=== PATIENT | male | born 2000 | race African-American/Black ===

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

== ENCOUNTER 2021-03-23 16:32 | Emergency (ER) | payer MEDICAID ==
[2021-03-23] MEDS ORDERED: Ibuprofen 200 MG TAB ONE (18:12)
== END 2021-03-23 18:17 | disposition home or self-care (01) ==
LOC: ERS 16:32
DX: M25.512 Pain in left shoulder (principal); F17.210 Nicotine dependence, cigarettes, uncomplicated

== ENCOUNTER 2021-05-16 19:24 | Emergency (ER) | payer MEDICAID | END 2021-05-16 22:02 | disposition home or self-care (01) | LOC: ERS 19:24 | DX: U07.1 COVID-19 (principal); F17.210 Nicotine dependence, cigarettes, uncomplicated | CPT/HCPCS: 99281 ==

== ENCOUNTER 2021-05-20 20:28 | Emergency (ER) | payer MEDICAID | END 2021-05-20 23:28 | disposition home or self-care (01) | LOC: ERS 20:28 | DX: U07.1 COVID-19 (principal) | CPT/HCPCS: 99281 ==

== ENCOUNTER 2021-07-31 02:20 | Inpatient (IN) | payer MEDICAID ==
[2021-07-31] MEDS ORDERED: Morphine 4 MG/ML VIAL ONE (02:27)
[2021-07-31] MEDS ORDERED: Ondansetron PF 4 MG/2 ML Vial ONE (02:28)
[2021-07-31] MEDS ORDERED: Ketamine 50 MG/ML (10ML VIAL) ONE (02:56)
[2021-07-31] MEDS ORDERED: Ondansetron PF 4 MG/2 ML Vial IVP PRN (03:44)
[2021-07-31] MEDS ORDERED: Dextrose 5% in Water 1,000 ML IV PRN (03:44)
[2021-07-31] MEDS ORDERED: hydrALAZINE 20 MG/ML VIAL SLOW IVP PRN (03:44)
[2021-07-31] MEDS ORDERED: Dextrose 50% Abboject 50 ML SYRINGE SLOW IVP PRN (03:44)
[2021-07-31] MEDS ORDERED: Cyclobenzaprine 10 MG TAB PO PRN (03:46)
[2021-07-31] MEDS ORDERED: traMADol HCl 50 MG TAB PO PRN ×2 (03:46)
[2021-07-31 04:04] LABS: #Basophils 0.1 thou/uL (0.0-0.2); #Eosinphils 0.1 thou/uL (0.0-0.7); #Lymphocytes 2.3 thou/uL (1.20-3.40); #Monocytes 0.8 thou/uL (0.11-0.59); #Neutrophils 9.2 thou/uL (1.40-6.50); %Basophils 0.8 % (0.0-1.0); %Eosinophils 0.8 % (0.0-10.0); %Lymphocytes 18.7 % (28.0-48.0); %Monocytes 6.2 % (0.0-4.0); %Neutrophils 73.5 % (31.0-61.0); Hemoglobin 13.2 g/dL (14.0-18.0); Mean Corpuscular HGB CONC 34.4 g/dL (32.0-36.0); Mean Corpuscular Hemoglobin 31.2 pg (25.0-35.0); Mean Corpuscular Volume 90.8 fL (78.0-98.0); Platelet Count 184 thou/uL (130-400); Red Blood Cell (RBC) Count 4.24 mill/uL (4.00-5.20); White Blood Cell (WBC) Count 12.5 thou/uL (4.8-10.8)
[2021-07-31 04:23] LABS: ALT (SGPT) 20 U/L (8-55); AST (SGOT) 23 U/L (5-34); Albumin 4.2 g/dL (3.5-5.0); Alkaline Phosphatase 127 U/L (50-130); Anion Gap 18 mmol/L (10-20); BUN (Urea Nitrogen) 23 mg/dL (8.9-20.6); Bilirubin, Total 0.2 mg/dL (0.2-1.2); Calc. Creatinine Clearance 0 mL/min (70-130); Calcium 9.4 mg/dL (7.8-10.44); Carbon Dioxide 19 mmol/L (22-29); Chloride 106 mmol/L (98-107); Globulin 2.8 g/dL (2.4-3.5); Glucose 101 mg/dL (70-105); Phosphorus 3.8 mg/dL (2.3-4.7); Potassium 3.6 mmol/L (3.5-5.1); Sodium 139 mmol/L (136-145)
[2021-07-31 04:24] LABS: Lactic Acid 4.1 mmol/L (0.5-2.2)
[2021-07-31] MEDS: Sodium Chloride 0.9% 1,000 ML IV SCH ×2 (05:20→21:46)
[2021-07-31 05:23] VITALS: BMI 16.2
[2021-07-31] MEDS: Acetaminophen 325 MG TAB PO SCH ×4 (05:29→23:44)
[2021-07-31 05:51] LABS: SARS-CoV-2 NAA Rapid Test Not Detected (NotDetected)
[2021-07-31] MEDS ORDERED: Sodium Chloride 0.9% 500 ML IV SCH (06:00)
[2021-07-31] MEDS ORDERED: CEFAZOLIN 2 GM in Premix Bag 1 BAG IVPB SCH (08:15)
[2021-07-31] MEDS: Famotidine 20 MG TAB PO SCH ×2 (08:22→20:26)
[2021-07-31] MEDS: Polyethylene Glycol 3350 17 GM Packet PO SCH (08:47)
[2021-07-31] MEDS: Senokot S 8.6-50 MG TAB PO SCH ×2 (08:47→20:27)
[2021-07-31] MEDS: Morphine 4 MG/ML VIAL SLOW IVP PRN ×2 (09:37→14:04)
[2021-07-31 11:17] LABS: Amphetamine Not Detected (NotDetected); Barbiturates Screen Not Detected (NotDetected); Benzodiazepine Screen Not Detected (NotDetected); Cocaine Metabolite Screen Not Detected (NotDetected); Methadone Not Detected (NotDetected); Methamphetamine Not Detected (NotDetected); Opiate Screen Detected (NotDetected); Oxycodone Screen Not Detected (NotDetected); Phencyclidine (PCP) Not Detected (NotDetected); THC/Cannabinoid Screen Detected (NotDetected); Tricyclic Screen Not Detected (NotDetected)
[2021-07-31] MEDS ORDERED: ceFAZolin 2 GM/DEX 5% 100 ML BAG ONE (15:20)
[2021-07-31] MEDS ORDERED: Fentanyl 250 MCG/5 ML VIAL ONE (16:37)
[2021-07-31] MEDS ORDERED: Dexmedetomidine 200 MCG/2 ML VIAL ONE (16:38)
[2021-07-31] MEDS ORDERED: HYDROmorphone 2 MG/ML VIAL SLOW IVP PRN (18:01)
[2021-07-31] MEDS ORDERED: Promethazine HCl 25 MG/ML VIAL IVPB PRN (18:01)
[2021-07-31] MEDS ORDERED: Morphine Sulfate 2 MG/ML SYRINGE SLOW IVP PRN (18:01)
[2021-07-31] MEDS ORDERED: PACU-Morphine 4MG/ML VIAL SLOW IVP PRN (18:01)
[2021-07-31] MEDS ORDERED: Ondansetron HCl/PF 4 MG/2 ML Vial IVP PRN (18:01)
[2021-07-31] MEDS ORDERED: Promethazine HCl 25 MG/ML VIAL IM PRN (18:01)
[2021-07-31] MEDS ORDERED: Fentanyl 100 MCG/2 ML VIAL ONE (18:52)
[2021-07-31] MEDS ORDERED: ceFAZolin Sodium/D5W 2 GM in Premix Bag 1 BAG IVPB SCH (23:00)
[2021-07-31] MEDS: ceFAZolin Sodium/D5W 2 GM in Premix Bag 1 BAG IVPB SCH (23:44)
[2021-08-01 04:42] LABS: Anion Gap 10 mmol/L (10-20); BUN (Urea Nitrogen) 15 mg/dL (8.9-20.6); Calc. Creatinine Clearance 88 mL/min (70-130); Calcium 9.1 mg/dL (7.8-10.44); Carbon Dioxide 28 mmol/L (22-29); Chloride 101 mmol/L (98-107); Glucose 159 mg/dL (70-105); Magnesium 1.7 mg/dL (1.7-2.2); Phosphorus 3.8 mg/dL (2.3-4.7); Potassium 3.8 mmol/L (3.5-5.1); Sodium 135 mmol/L (136-145)
[2021-08-01 04:43] LABS: Lactic Acid 1.3 mmol/L (0.5-2.2)
[2021-08-01 04:51] LABS: #Lymphocytes 0.6 thou/uL (1.20-3.40); #Monocytes 0.8 thou/uL (0.11-0.59); #Neutrophils 5.4 thou/uL (1.40-6.50); %Basophils 0.2 % (0.0-1.0); %Eosinophils 0.1 % (0.0-10.0); %Lymphocytes 8.9 % (28.0-48.0); %Monocytes 11.7 % (0.0-4.0); %Neutrophils 79.1 % (31.0-61.0); Hemoglobin 9.9 g/dL (14.0-18.0); Mean Corpuscular Hemoglobin 31.3 pg (25.0-35.0); Mean Corpuscular Volume 89.5 fL (78.0-98.0); Mean Platelet Volume 8.1 fL (7.4-10.4); Platelet Count 168 thou/uL (130-400); RBC Distribution Width 10.9 % (11.5-14.5); Red Blood Cell (RBC) Count 3.16 mill/uL (4.00-5.20); White Blood Cell (WBC) Count 6.9 thou/uL (4.8-10.8)
[2021-08-01] MEDS: Acetaminophen 325 MG TAB PO SCH ×2 (05:44→13:25)
[2021-08-01] MEDS: Polyethylene Glycol 3350 17 GM Packet PO SCH (08:39)
[2021-08-01] MEDS: Famotidine 20 MG TAB PO SCH (08:39)
[2021-08-01] MEDS: Senokot S 8.6-50 MG TAB PO SCH (08:39)
[2021-08-01] MEDS: ceFAZolin Sodium/D5W 2 GM in Premix Bag 1 BAG IVPB SCH (08:39)
[2021-08-01] MEDS ORDERED: Magnesium Sulfate 3 GM in Sodium Chloride 0.9% 100 ML IV SCH (08:45)
[2021-08-01] MEDS ORDERED: Potassium Phosphate 30 MMOL, Magnesium Sulfate 2 GM in Sodium Chloride 0.9% 500 ML IVPB SCH (08:45)
[2021-08-01] MEDS ORDERED: Potassium Phosphate 30 MMOL, Magnesium Sulfate 2 GM in Sodium Chloride 0.9% 250 ML 250 ML IVPB SCH (09:00)
[2021-08-01 16:40] VITALS: BP 125/70; TEMP 98.9
== END 2021-08-01 17:52 | disposition home or self-care (01) | DRG 482 ==
LOC: ERS 02:20 → SURG A 03:44
PROVIDERS: ADMIT Specialist; ATTEND Specialist
PROC: 0QH706Z Insertion of Intramedullary Internal Fixation Device into Left Upper Femur, Open Approach (ICD-10-PCS; principal; 2021-07-31)
DX: S72.22XA Displaced subtrochanteric fracture of left femur, initial encounter for closed fracture (principal); Z20.822 Contact with and (suspected) exposure to COVID-19; W18.30XA Fall on same level, unspecified, initial encounter; R74.02 Elevation of levels of lactic acid dehydrogenase [LDH]
CPT/HCPCS: 36415; 71045; 72170; 76000; 80048; 80053; 80306; 80307; 83605; 83735; 84100; 85025; C1713; J2270; J2405; J3010; J3475; J7050; U0002

== ENCOUNTER 2021-08-15 10:34 | Emergency (ER) | payer MEDICAID | END 2021-08-15 12:15 | disposition home or self-care (01) | LOC: ERS 10:34 | DX: S71.112D Laceration without foreign body, left thigh, subsequent encounter (principal) ==

== ENCOUNTER 2021-12-25 00:06 | Emergency (ER) | payer MEDICAID | END 2021-12-25 01:28 | disposition home or self-care (01) | LOC: ERS 00:06 | DX: M25.561 Pain in right knee (principal) ==

== ENCOUNTER 2022-07-18 03:04 | Emergency (ER) | payer OTHER | END 2022-07-18 03:17 | LOC: ERS 03:04 | DX: Z00.00 Encounter for general adult medical examination without abnormal findings (principal) | CPT/HCPCS: 99283 ==

== ENCOUNTER 2022-07-18 03:46 | Emergency (ER) | payer OTHER | END 2022-07-18 04:08 | LOC: ERS 03:46 | DX: Z71.1 Person with feared health complaint in whom no diagnosis is made (principal) | CPT/HCPCS: 99284 ==

== ENCOUNTER 2022-10-23 11:28 | Emergency (ER) | payer OTHER ==
[2022-10-23 15:01] LABS: Bacteria/HPF None Seen HPF (None Seen); Bilirubin Negative (Negative); Blood, Urine Negative (Negative); Clarity Clear (Clear); Glucose, Urine (Dipstick) Normal (Negative); Ketone, Urine Negative (Negative); Leukocyte 75 Leu/uL (Negative); Nitrite Negative (Negative); Protein, Urine (Dipstick) Negative (Neg-Trace); RBC/HPF 0-3 HPF (0-3); Specific Gravity, Urine 1.016 (1.002-1.036); Squamous Epithelial None Seen HPF (0-3); Urobilinogen Normal mg/dL (Less than 2); WBC/HPF 21-50 HPF (0-3)
[2022-10-23] MEDS ORDERED: Lidocaine 1% MPF 2 ML VIAL ONE (15:23)
[2022-10-23] MEDS ORDERED: Azithromycin 250 MG TAB ONE (15:23)
[2022-10-23] MEDS ORDERED: cefTRIAXone\\ROCEPHIN 500 MG VIAL ONE (15:23)
[2022-10-24 11:44] LABS: Chlam.trachomatis by PCR,Urine DETECTED (NotDetected); GC N.gonorrhoeae PCR,UrineVOID Not Detected (NotDetected)
== END 2022-10-23 16:04 | disposition home or self-care (01) ==
LOC: ERS 11:28
DX: S00.83XA Contusion of other part of head, initial encounter (principal); N34.1 Nonspecific urethritis; R68.84 Jaw pain; F17.210 Nicotine dependence, cigarettes, uncomplicated; Y04.2XXA Assault by strike against or bumped into by another person, initial encounter
CPT/HCPCS: 70450; 70486; 81003; 81015; 87086; 87491; 87591; 96372; J0696

== ENCOUNTER 2023-05-07 17:31 | Emergency (ER) | payer OTHER ==
[2023-05-07] MEDS ORDERED: Ketorolac Tromethamine 30 MG/ML VIAL ONE (17:53)
[2023-05-07] MEDS ORDERED: Ibuprofen 200 MG TAB ONE (18:14)
== END 2023-05-07 18:51 | disposition home or self-care (01) ==
LOC: ERS 17:31
DX: M25.561 Pain in right knee (principal); F17.210 Nicotine dependence, cigarettes, uncomplicated
CPT/HCPCS: J1885

== ENCOUNTER 2024-06-07 06:55 | Emergency (ER) | payer SELFPAY ==
[2024-06-07] MEDS ORDERED: Acetaminophen 325 MG TAB ONE (07:43)
== END 2024-06-07 07:49 | disposition home or self-care (01) ==
LOC: ERS 06:55
DX: M79.671 Pain in right foot (principal); M79.672 Pain in left foot; F17.210 Nicotine dependence, cigarettes, uncomplicated; F17.290 Nicotine dependence, other tobacco product, uncomplicated; Z55.6 Problems related to health literacy
CPT/HCPCS: 99283